=== PATIENT | female | born 1950 | race Caucasian/White ===

== ENCOUNTER 2016-11-25 10:49 | Day surgery (SDC) | payer MEDICARE ==
[2016-11-20 10:08] VITALS: BMI 22.6
[~2016-11-25 10:49] MED LIST: LACTATED RINGERS 1,000 ML IV SCH
[2016-11-25 11:35] VITALS: RESP 18; TEMP 97.6
[2016-11-25] MEDS ORDERED: LIDOCAINE 1% 20 ML VIAL (10MG/ML) FOR IV START INTRADERMA ONE (11:35)
[2016-11-25] MEDS ORDERED: PROPOFOL 10 MG/ML 20 ML VIAL IV ONE (12:46)
--- NOTE | 2016-11-25 13:02 | P.GSHP ---
History of Present Illness H&P Date: 11/25/16 Chief Complaint: Colon cancer screening Patient here today for colonoscopy. Last colonoscopy was 4 years ago. She believes she may have had a polyp at that time. Denies rectal bleeding or melena. Past Medical History Past Medical History: Cancer, CVA/TIA, Hyperlipidemia, Hypertension, Skin Disorder Additional Past Medical History / Comment(s): hx of polyps, varicose veins, psoriasis, hx uterine cancer, psoriatic arthritis History of Any Multi-Drug Resistant Organisms: None Reported Past Surgical History: Hysterectomy Additional Past Surgical History / Comment(s): hemorrhoidectomy Past Anesthesia/Blood Transfusion Reactions: No Reported Reaction Past Psychological History: No Psychological Hx Reported Smoking Status: Current every day smoker Past Alcohol Use History: Occasional Additional Past Alcohol Use History / Comment(s): states smokes 1ppd since age 19 1968 Past Drug Use History: None Reported - Past Family History Mother Family Medical History: No Reported History Medications and Allergies Home Medications Medication Instructions Recorded Confirmed Type Aspirin 81 mg PO DAILY 10/02/14 11/25/16 History Benazepril/Hydrochlorothiazide 1 tab PO QAM 10/02/14 11/25/16 History [Lotensin Hct 10-12.5 mg Tablet] Halobetafol Propronate 0.05% 1 applicate TOPICAL DAILY 10/02/14 11/25/16 History Methotrexate Sodium [Methotrexate] 10 mg PO MO 10/02/14 11/25/16 History Simvastatin [Zocor] 40 mg PO HS 10/02/14 11/25/16 History Enstilar 1 applic TOPICAL DAILY 11/20/16 11/25/16 History Allergies Allergy/AdvReac Type Severity Reaction Status Date / Time No Known Allergies Allergy Verified 11/25/16 11:26 Surgical - Exam Vital Signs Temp Pulse Resp BP Pulse Ox 97.6 F 82 18 138/76 97 11/25/16 11:33 11/25/16 11:33 11/25/16 11:33 11/25/16 11:33 11/25/16 11:33 Physical exam: General: Well-developed, well-nourished HEENT: Normocephalic, sclerae nonicteric Abdomen: Nontender, nondistended Extremities: No edema Neuro: Alert and oriented Assessment and Plan (1) Colon cancer screening Narrative/Plan: Will proceed with colonoscopy today. Risks of bleeding and perforation discussed. Status: Acute
--- NOTE | 2016-11-25 13:31 | P.PCN ---
Date of Procedure: 11/25/16 Procedure(s) Performed: PREOPERATIVE DIAGNOSIS: Screening POSTOPERATIVE DIAGNOSIS: Colon polyps, diverticulosis PROCEDURE: Colonoscopy with snare polypectomy ANESTHESIA: MAC SURGEON: Roscoe Ozuna M.D. SPECIMENS: Polyps ENDOSCOPIC PROCEDURE: The patient was placed on the endoscopy table in the left decubitus position. The Olympus colonoscope was inserted into the anus and passed under direct visualization to the base of the cecum. The appendiceal orifice was visualized. From that point the scope was slowly withdrawn inspecting all surfaces carefully. There were no neoplastic inflammatory or polypoid lesions throughout the cecum. In the mid ascending colon a small polyp was identified and removed using the snare with cautery technique. Just beyond the hepatic flexure a larger polyp was noted. This was pedunculated and measured about 1 cm in size. This was removed in a similar fashion. The remainder of the transverse, descending, sigmoid and rectum appeared normal. There was moderate diverticulosis noted in the left colon. Digital rectal examination was normal. The patient was taken to the recovery room in stable condition per anesthesia guidelines. RECOMMENDATIONS: Await biopsy results. Anticipate follow-up colonoscopy 3 years given the size of the larger polyp.
[2016-11-25 13:46] VITALS: BP 123/70; PULSE 70
== END 2016-11-25 14:10 | disposition home or self-care (01) ==
LOC: ORWHC2ENDO 10:49
PROVIDERS: ATTEND Surgery
DX: Z12.11 Encounter for screening for malignant neoplasm of colon (principal); D12.2 Benign neoplasm of ascending colon; D12.3 Benign neoplasm of transverse colon; K57.30 Diverticulosis of large intestine without perforation or abscess without bleeding; I10 Essential (primary) hypertension; E78.5 Hyperlipidemia, unspecified; L40.50 Arthropathic psoriasis, unspecified; F17.200 Nicotine dependence, unspecified, uncomplicated; Z79.82 Long term (current) use of aspirin; Z79.899 Other long term (current) drug therapy
CPT/HCPCS: 88305; 45385; J2704; 99153

== ENCOUNTER → 2016-12-08 | Outpatient (CLI) | payer MEDICARE ==
[2016-12-08 10:31] LABS: CH 32.9; CHCM 33.2; HDW 2.31; HGB 14.6 gm/dL (11.4-16.0); MCHC 34.1 g/dL (31.0-37.0); MCV 99.6 fL (80.0-100.0); Macrocytosis Slight; Mean Platelet Volume 8.4; RBC 4.31 m/uL (3.80-5.40); RDW 14.2 % (11.5-15.5)
[2016-12-08 10:55] LABS: ALT 21 U/L (9-52); AST 25 U/L (14-36)
== END ==
LOC: LABWHC1 09:58
PROVIDERS: ATTEND Dermatology Dermatopathology
DX: L40.0 Psoriasis vulgaris (principal); Z79.899 Other long term (current) drug therapy
CPT/HCPCS: 36415; 84450; 84460; 85027

== ENCOUNTER → 2017-02-10 | Outpatient (CLI) | payer MEDICARE ==
--- NOTE | 2017-02-12 13:13 | MM ---
Reason for exam: screening (asymptomatic). Last mammogram was performed 1 year and 1 month ago. History: Patient is postmenopausal and has history of endometrial cancer at age 28. Family history of breast cancer in maternal grandmother. Took estrogen for 4 years. Physical Findings: A clinical breast exam by your physician is recommended on an annual basis and results should be correlated with mammographic findings. MG 3D Screening Mammo W/Cad Bilateral CC and MLO view(s) were taken. Prior study comparison: January 03, 2016, bilateral MG 3d screening mammo w/cad. November 09, 2014, bilateral MG screening mammo w CAD. September 08, 2013, CAD bilateral diagnostic mammogram. The breast tissue is heterogeneously dense. This may lower the sensitivity of mammography. No significant changes when compared with prior studies. ASSESSMENT: Benign, BI-RAD 2 RECOMMENDATION: Routine screening mammogram of both breasts in 1 year.
== END | disposition home or self-care (01) ==
LOC: RADMAMWWP 13:14
PROVIDERS: ATTEND Family Medicine
DX: Z12.31 Encounter for screening mammogram for malignant neoplasm of breast (principal)
CPT/HCPCS: 77063; G0202

== ENCOUNTER → 2017-02-24 | Outpatient (CLI) | payer MEDICARE ==
--- NOTE | 2017-02-24 20:04 | CT ---
EXAMINATION TYPE: CT abdomen pelvis wo con DATE OF EXAM: 02/24/2017 7:34 PM COMPARISON: NONE HISTORY: Hematuria and right flank pain x years. CT DLP: 225.40 mGycm Automated exposure control for dose reduction was used. TECHNIQUE: Helical acquisition of images was performed from the lung bases through the pelvis. FINDINGS: The lung bases are clear of consolidation. There is no pleural effusion. There is a small hiatal walker ia. Liver spleen pancreas appear normal. Gallbladder is contracted. Bile ducts are not dilated. Abdominal aorta is atheromatous. There is no adrenal mass. Kidneys show no hydronephrosis. Ureters are not dilated. There are multiple foci of faint calcification in the left kidney cortex. There is no retroperitoneal adenopathy. There is no ascites. Appendix is not definitely seen. There i s no sign of appendicitis. There are multiple sigmoid diverticula. There is no sign of diverticulitis . The bladder distends smoothly. There is no sign of a pelvic mass. There is no sign of a bowel obstr uction. I see no bony destructive process.. IMPRESSION: THERE ARE CALCIFICATIONS IN THE LEFT KIDNEY CONSISTENT WITH NEPHROCALCINOSIS. NO EVIDENCE OF RENAL OB STRUCTION. ATHEROSCLEROTIC VASCULAR DISEASE. THERE IS SOME DIVERTICULOSIS WITHOUT EVIDENCE OF COLONIC DIVERTICULITIS. NO SIGN OF ACUTE ABDOMEN AND PELVIS.
== END | disposition home or self-care (01) ==
LOC: RADCTMAIN 19:13
PROVIDERS: ATTEND Family Medicine
DX: N28.89 Other specified disorders of kidney and ureter (principal); I70.90 Unspecified atherosclerosis; K57.30 Diverticulosis of large intestine without perforation or abscess without bleeding
CPT/HCPCS: 74176

== ENCOUNTER → 2017-04-22 | Outpatient (CLI) | payer MEDICARE ==
[2017-04-22 11:04] LABS: CH 33.4; CHCM 33.2; HCT 44.4 % (34.0-46.0); HDW 2.25; HGB 14.6 gm/dL (11.4-16.0); MCH 33.4 pg (25.0-35.0); MCV 101.2 fL (80.0-100.0); Macrocytosis Slight; Mean Platelet Volume 8.3; RBC 4.38 m/uL (3.80-5.40); RDW 15.5 % (11.5-15.5); WBC 6.4 k/uL (3.8-10.6)
[2017-04-22 11:09] LABS: ALT 40 U/L (9-52); AST 29 U/L (14-36)
== END | disposition home or self-care (01) ==
LOC: LABWHC1 10:21
PROVIDERS: ATTEND Dermatology Dermatopathology
DX: L40.0 Psoriasis vulgaris (principal); Z79.899 Other long term (current) drug therapy
CPT/HCPCS: 36415; 84450; 84460; 85027

== ENCOUNTER → 2017-07-26 | Outpatient (CLI) | payer MEDICARE ==
[2017-07-26 10:58] LABS: Basophils % (A) 1 %; CH 32.3; CHCM 32.5; Eosinophils # (A) 0.1 k/uL (0-0.7); Eosinophils % (A) 2 %; HCT 42.7 % (34.0-46.0); Luc % (Auto) 1; Lymphocytes # (A) 1.3 k/uL (1.0-4.8); Lymphocytes % (A) 18 %; MCH 32.7 pg (25.0-35.0); MCHC 32.7 g/dL (31.0-37.0); Macrocytosis Slight; Mean Platelet Volume 7.7; Monocytes # (A) 0.4 k/uL (0-1.0); Monocytes % (A) 6 %; Neutrophils # (A) 5.5 k/uL (1.3-7.7); Neutrophils % (A) 73 %; RBC 4.27 m/uL (3.80-5.40); RDW 14.5 % (11.5-15.5); WBC 7.6 k/uL (3.8-10.6); WBC (Perox) 7.46
[2017-07-26 11:20] LABS: ALT 27 U/L (9-52); AST 23 U/L (14-36); Alkaline Phosphatase 54 U/L (38-126); Anion Gap 7 mmol/L; Blood Urea Nitrogen 24 mg/dL (7-17); Calcium 9.3 mg/dL (8.4-10.2); Carbon Dioxide 28 mmol/L (22-30); Chloride 106 mmol/L (98-107); Cholesterol 175 mg/dL (<200); Glucose 99 mg/dL (74-99); HDL Cholesterol 84 mg/dL (40-60); Non-African American GFR(MDRD) >60 (>60 ml/min/1.73 sqM); Potassium 4.5 mmol/L (3.5-5.1); Sodium 141 mmol/L (137-145); Total Bilirubin 0.5 mg/dL (0.2-1.3); Total Protein 6.6 g/dL (6.3-8.2)
== END | disposition home or self-care (01) ==
LOC: LABWHC1 10:21
PROVIDERS: ATTEND Dermatology Dermatopathology
DX: Z00.00 Encounter for general adult medical examination without abnormal findings (principal); L40.0 Psoriasis vulgaris; E78.5 Hyperlipidemia, unspecified; I10 Essential (primary) hypertension; Z79.899 Other long term (current) drug therapy
CPT/HCPCS: 36415; 80053; 80061; 84443; 85025

== ENCOUNTER → 2017-11-22 | Outpatient (CLI) | payer MEDICARE ==
[2017-11-22 11:35] LABS: HCT 45.2 % (34.0-46.0); MCH 31.4 pg (25.0-35.0); MCHC 30.8 g/dL (31.0-37.0); MCV 101.9 fL (80.0-100.0); Macrocytosis Slight; Mean Platelet Volume 7.3; Platelet Count 292 k/uL (150-450); RBC 4.44 m/uL (3.80-5.40); RDW 13.8 % (11.5-15.5); WBC 6.7 k/uL (3.8-10.6)
[2017-11-22 11:58] LABS: ALT 24 U/L (9-52); AST 25 U/L (14-36)
== END | disposition home or self-care (01) ==
LOC: LABWHC1 10:45
PROVIDERS: ATTEND Dermatology Dermatopathology
DX: L40.0 Psoriasis vulgaris (principal); Z79.899 Other long term (current) drug therapy
CPT/HCPCS: 36415; 84450; 84460; 85027

== ENCOUNTER → 2018-03-01 | Outpatient (CLI) | payer MEDICARE ==
[2018-03-01 11:24] LABS: HCT 43.4 % (34.0-46.0); HGB 14.6 gm/dL (11.4-16.0); MCH 33.1 pg (25.0-35.0); MCHC 33.8 g/dL (31.0-37.0); MCV 97.9 fL (80.0-100.0); Mean Platelet Volume 8.1; Platelet Count 220 k/uL (150-450); RBC 4.43 m/uL (3.80-5.40); RDW 14.3 % (11.5-15.5); WBC 6.9 k/uL (3.8-10.6)
[2018-03-01 11:53] LABS: ALT 28 U/L (9-52); AST 26 U/L (14-36)
== END | disposition home or self-care (01) ==
LOC: LABWHC1 10:29
PROVIDERS: ATTEND Dermatology Dermatopathology
DX: L40.0 Psoriasis vulgaris (principal); Z79.899 Other long term (current) drug therapy
CPT/HCPCS: 36415; 84450; 84460; 85027

== ENCOUNTER → 2018-03-25 | Outpatient (CLI) | payer MEDICARE ==
--- NOTE | 2018-03-29 07:29 | MM ---
Reason for exam: screening (asymptomatic). Last mammogram was performed 1 year and 1 month ago. History: Patient is postmenopausal and has history of endometrial cancer at age 28. Family history of breast cancer in maternal grandmother. Took estrogen for 4 years. Physical Findings: A clinical breast exam by your physician is recommended on an annual basis and results should be correlated with mammographic findings. MG 3D Screening Mammo W/Cad Bilateral CC and MLO view(s) were taken. Prior study comparison: February 10, 2017, bilateral MG 3d screening mammo w/cad. January 03, 2016, bilateral MG 3d screening mammo w/cad. The breast tissue is heterogeneously dense. This may lower the sensitivity of mammography. No significant changes when compared with prior studies. ASSESSMENT: Negative, BI-RAD 1 RECOMMENDATION: Routine screening mammogram of both breasts in 1 year.
== END | disposition home or self-care (01) ==
LOC: RADMAMWWP 10:09
PROVIDERS: ATTEND Family Medicine
DX: Z12.31 Encounter for screening mammogram for malignant neoplasm of breast (principal)
CPT/HCPCS: 77063; 77067

== ENCOUNTER → 2018-08-01 | Outpatient (CLI) | payer MEDICARE ==
[2018-08-01 11:01] LABS: Basophils # (A) 0.1 k/uL (0-0.2); Basophils % (A) 1 %; Eosinophils # (A) 0.3 k/uL (0-0.7); Eosinophils % (A) 4 %; HCT 43.2 % (34.0-46.0); HGB 14.2 gm/dL (11.4-16.0); Lymphocytes # (A) 1.8 k/uL (1.0-4.8); Lymphocytes % (A) 21 %; MCH 32.5 pg (25.0-35.0); MCHC 32.9 g/dL (31.0-37.0); MCV 98.8 fL (80.0-100.0); Macrocytosis Slight; Mean Platelet Volume 7.8; Monocytes # (A) 0.5 k/uL (0-1.0); Monocytes % (A) 7 %; Neutrophils # (A) 5.5 k/uL (1.3-7.7); Neutrophils % (A) 66 %; Platelet Count 297 k/uL (150-450); RBC 4.38 m/uL (3.80-5.40); RDW 14.4 % (11.5-15.5); WBC 8.3 k/uL (3.8-10.6)
[2018-08-01 17:31] LABS: Albumin/Globulin Ratio 2.35 (1.20-2.10); Anion Gap 4.2 mmol/L (4.00-12.00); Calcium 9.4 mg/dL (8.7-10.3); Carbon Dioxide 30.8 mmol/L (21.6-31.8); Globulin 1.7 g/dL (2.1-3.7); Potassium 4.4 mmol/L (3.5-5.5); Total Bilirubin 0.5 mg/dL (0.2-1.2); Total Protein 5.7 g/dL (6.2-8.2)
[2018-08-01 17:38] LABS: T4, Free (Free Thyroxine) 1.3 ng/dL (0.80-1.80)
== END | disposition home or self-care (01) ==
LOC: LABWHC1 09:43
PROVIDERS: ATTEND Family Medicine
DX: Z00.00 Encounter for general adult medical examination without abnormal findings (principal); E78.5 Hyperlipidemia, unspecified; I10 Essential (primary) hypertension
CPT/HCPCS: 36415; 80053; 80061; 84439; 84443; 85025

== ENCOUNTER → 2018-09-16 | Outpatient (CLI) | payer MEDICARE ==
[2018-09-16 12:08] LABS: Basophils % (A) 1 %; Eosinophils # (A) 0.2 k/uL (0-0.7); Eosinophils % (A) 4 %; HCT 42.2 % (34.0-46.0); HGB 13.6 gm/dL (11.4-16.0); Lymphocytes # (A) 1.5 k/uL (1.0-4.8); Lymphocytes % (A) 25 %; MCH 31.9 pg (25.0-35.0); MCHC 32.2 g/dL (31.0-37.0); Mean Platelet Volume 8.1; Monocytes # (A) 0.3 k/uL (0-1.0); Monocytes % (A) 5 %; Neutrophils # (A) 3.9 k/uL (1.3-7.7); Neutrophils % (A) 64 %; Platelet Count 228 k/uL (150-450); RBC 4.27 m/uL (3.80-5.40); WBC 6.2 k/uL (3.8-10.6)
[2018-09-16 18:47] LABS: ALT 13 U/L (8-44); AST 22 U/L (13-35); Albumin/Globulin Ratio 2.35 (1.20-2.10); Alkaline Phosphatase 53 U/L (41-126); Bilirubin, Conjugated <0.20 mg/dL (0.20-0.40); Globulin 1.7 g/dL (2.1-3.7); Total Bilirubin 0.5 mg/dL (0.3-1.2); Total Protein 5.7 g/dL (6.2-8.2)
== END ==
LOC: LABWHC1 10:36
PROVIDERS: ATTEND Dermatology Dermatopathology
DX: L40.0 Psoriasis vulgaris (principal); Z79.899 Other long term (current) drug therapy
CPT/HCPCS: 36415; 80076; 85025

== ENCOUNTER 2018-11-14 11:22 | Emergency (ER) | payer MEDICARE ==
[2018-11-14 11:41] VITALS: RESP 18
[2018-11-14 12:26] LABS: Basophils % (A) 0 %; Eosinophils # (A) 0.1 k/uL (0-0.7); Eosinophils % (A) 1 %; HGB 14.2 gm/dL (11.4-16.0); Lymphocytes # (A) 0.9 k/uL (1.0-4.8); Lymphocytes % (A) 10 %; MCH 32.3 pg (25.0-35.0); MCHC 32.9 g/dL (31.0-37.0); MCV 98.2 fL (80.0-100.0); Mean Platelet Volume 7.6; Monocytes # (A) 0.3 k/uL (0-1.0); Monocytes % (A) 4 %; Neutrophils # (A) 7.9 k/uL (1.3-7.7); Neutrophils % (A) 84 %; Platelet Count 214 k/uL (150-450); RBC 4.38 m/uL (3.80-5.40); RDW 14.7 % (11.5-15.5); WBC 9.4 k/uL (3.8-10.6)
[2018-11-14 12:37] LABS: ALT 33 U/L (9-52); AST 30 U/L (14-36); Albumin 4.1 g/dL (3.5-5.0); Alkaline Phosphatase 51 U/L (38-126); Amylase 67 U/L (30-110); Anion Gap 6 mmol/L; Appearance,Urine Cloudy (Clear); Bacteria,Urine Rare /hpf; Bilirubin,Urine Negative (Negative); Blood Urea Nitrogen 20 mg/dL (7-17); Blood,Urine Moderate (Negative); Calcium 9.7 mg/dL (8.4-10.2); Carbon Dioxide 28 mmol/L (22-30); Chloride 106 mmol/L (98-107); Color,Urine Yellow; Glucose 99 mg/dL (74-99); Glucose,Urine (UA) Negative (Negative); Ketones,Urine Negative (Negative); Leukocyte Esterase,Urine Negative (Negative); Lipase 87 U/L (23-300); Mucus,Urine Moderate /hpf; Nitrite,Urine Negative (Negative); Potassium 3.8 mmol/L (3.5-5.1); Protein,Urine 1+ (Negative); RBC,Urine 4 /hpf (0-5); Sodium 140 mmol/L (137-145); Specific Gravity,Urine 1.022 (1.001-1.035); Squamous Epithelial Cell,Urine <1 /hpf (0-4); Total Bilirubin 0.6 mg/dL (0.2-1.3); Total Protein 6.9 g/dL (6.3-8.2); Urobilinogen,Urine <2.0 mg/dL (<2.0); WBC,Urine 3 /hpf (0-5)
[2018-11-14] MEDS ORDERED: MORPHINE SULFATE 4 MG/ML SYRINGE IVP STA (12:47)
[2018-11-14] MEDS ORDERED: KETOROLAC 30 MG/ML 1 ML VIAL IVP STA (12:47)
[2018-11-14] MEDS ORDERED: ONDANSETRON 4 MG/2 ML VIAL IVP STA (12:47)
[2018-11-14] MEDS ORDERED: SODIUM CHLORIDE 0.9% 1,000 ML IV ONE (12:48)
[2018-11-14] MEDS ORDERED: LORazepam 2 MG/ML INJ IV STA (13:37)
--- NOTE | 2018-11-14 13:58 | CT ---
EXAMINATION TYPE: CT abdomen pelvis wo con DATE OF EXAM: 11/14/2018 COMPARISON: 02/24/2017 HISTORY: Rt flank pain CT DLP: 322 mGycm Examination of the solid and hollow viscera is limited given the lack of contrast. FINDINGS: LUNG BASES: No evidence for nodule. No evidence for infiltrate. Right basilar atelectasis or parenchy mal scarring. LIVER/GB: The gallbladder is unremarkable. No space-occupying hepatic lesion. PANCREAS: No pancreatic mass identified. No inflammatory process seen. SPLEEN: No evidence for splenomegaly. No intrasplenic lesions seen. ADRENALS: No adrenal nodules identified. No evidence for thickening. KIDNEYS: Subcentimeter hyperdense renal lesions may reflect hemorrhagic cysts or mucous containing cy sts. No nephrolithiasis. No hydronephrosis. BOWEL: The appendix is not clearly visualized at this time. No evidence of bowel obstruction. Mild sm all bowel wall thickening may reflect enteritis nonspecific type. Correlate clinically. Lymph nodes: No evidence for adenopathy greater than 1 cm. Abdominal aorta: Atheromatous changes seen. No evidence for aneurysm. Genital organs: No significant abnormality. Other: No significant abnormality. IMPRESSION: 1. Mild small bowel wall thickening may reflect enteritis nonspecific type. Correlate clinically.
--- NOTE | 2018-11-14 14:00 | ED ---
Abdominal Pain HPI - General Chief Complaint: Abdominal Pain Stated Complaint: Abd Pain, Lower Back Pain Time Seen by Provider: 11/14/18 12:15 Source: patient, family, RN notes reviewed, old records reviewed Mode of arrival: wheelchair Limitations: no limitations - History of Present Illness Initial Comments: 68-year-old female presents to return today with onset of abdominal pain. This started on the right flank breathing down towards her abdomen. She reports a few episodes of vomiting due to the pain. She reports that the pain comes and goes. She reports that she has no changes in bowel habits. - Related Data Home Medications Medication Instructions Recorded Confirmed Aspirin 81 mg PO DAILY 10/02/14 11/14/18 Benazepril/Hydrochlorothiazide 1 tab PO QAM 10/02/14 11/14/18 [Lotensin Hct 10-12.5 mg Tablet] Methotrexate Sodium [Methotrexate] 15 mg PO MO 10/02/14 11/14/18 Simvastatin [Zocor] 40 mg PO HS 10/02/14 11/14/18 Previous Rx's Medication Instructions Recorded Ibuprofen [Motrin] 600 mg PO Q6HR PRN #20 tab 11/14/18 Ondansetron Odt [Zofran Odt] 4 mg PO Q8HR PRN #12 tab 11/14/18 Allergies Allergy/AdvReac Type Severity Reaction Status Date / Time No Known Allergies Allergy Verified 11/14/18 12:35 Review of Systems ROS Statement: Those systems with pertinent positive or pertinent negative responses have been documented in the HPI. ROS Other: All systems not noted in ROS Statement are negative. Past Medical History Past Medical History: Hyperlipidemia, Hypertension Additional Past Medical History / Comment(s): varicose veins, psoriasis, hx uterine cancer History of Any Multi-Drug Resistant Organisms: None Reported Past Surgical History: Hysterectomy Additional Past Surgical History / Comment(s): hemorrhoidectomy Past Anesthesia/Blood Transfusion Reactions: No Reported Reaction Past Psychological History: No Psychological Hx Reported Smoking Status: Current every day smoker Past Alcohol Use History: Occasional Past Drug Use History: None Reported - Past Family History Mother Family Medical History: No Reported History General Exam - General Exam Comments Initial Comments: 68-year-old female. Limitations: no limitations General appearance: alert, in no apparent distress Head exam: Present: atraumatic, normocephalic, normal inspection Eye exam: Present: normal appearance, PERRL, EOMI. Absent: scleral icterus, conjunctival injection, periorbital swelling ENT exam: Present: normal exam, mucous membranes moist Neck exam: Present: normal inspection. Absent: tenderness, meningismus, lymphadenopathy Respiratory exam: Present: normal lung sounds bilaterally. Absent: respiratory distress, wheezes, rales, rhonchi, stridor Cardiovascular Exam: Present: regular rate, normal rhythm, normal heart sounds. Absent: systolic murmur, diastolic murmur, rubs, gallop, clicks GI/Abdominal exam: Present: soft, tenderness (RLQ ), normal bowel sounds. Absent: distended, guarding, rebound, rigid Extremities exam: Present: normal inspection, full ROM, normal capillary refill. Absent: tenderness, pedal edema, joint swelling, calf tenderness Back exam: Present: normal inspection Course Vital Signs 11/14/18 11/14/18 11/14/18 11:39 13:18 14:40 Temperature 98.4 F Pulse Rate 70 67 73 Respiratory 18 18 18 Rate Blood Pressure 114/74 115/59 116/60 O2 Sat by Pulse 96 95 96 Oximetry 11/14/18 15:45 Temperature 98.2 F Pulse Rate 70 Respiratory 18 Rate Blood Pressure 122/74 O2 Sat by Pulse 97 Oximetry Medical Decision Making - Medical Decision Making Patient is a 68 year old female with CC of R flank pain and nausea and vomting. Patient has normal lab work. UA shows RBC. Likely passing ureteral stone, she was given IV fluids and pain medications. Patient CT scan shows no evidence of retained stone. Discussed she may have passed the stone already. Discussed that she should have close follow up with PCP . Will DC with short course of pain medications and close follow up oand resturn parameters. - Lab Data Result diagrams: 11/14/18 12:00 11/14/18 12:00 Lab Results 11/14/18 11/14/18 11/14/18 Range/Units 12:00 12:00 12:00 WBC 9.4 (3.8-10.6) k/uL RBC 4.38 (3.80-5.40) m/uL Hgb 14.2 (11.4-16.0) gm/dL Hct 43.0 (34.0-46.0) % MCV 98.2 (80.0-100.0) fL MCH 32.3 (25.0-35.0) pg MCHC 32.9 (31.0-37.0) g/dL RDW 14.7 (11.5-15.5) % Plt Count 214 (150-450) k/uL Neutrophils % 84 % Lymphocytes % 10 % Monocytes % 4 % Eosinophils % 1 % Basophils % 0 % Neutrophils # 7.9 H (1.3-7.7) k/uL Lymphocytes # 0.9 L (1.0-4.8) k/uL Monocytes # 0.3 (0-1.0) k/uL Eosinophils # 0.1 (0-0.7) k/uL Basophils # 0.0 (0-0.2) k/uL Sodium 140 (137-145) mmol/L Potassium 3.8 (3.5-5.1) mmol/L Chloride 106 (98-107) mmol/L Carbon Dioxide 28 (22-30) mmol/L Anion Gap 6 mmol/L BUN 20 H (7-17) mg/dL Creatinine 0.71 (0.52-1.04) mg/dL Est GFR (CKD-EPI)AfAm >90 (>60 ml/min/1.73 sqM) Est GFR (CKD-EPI)NonAf 88 (>60 ml/min/1.73 sqM) Glucose 99 (74-99) mg/dL Calcium 9.7 (8.4-10.2) mg/dL Total Bilirubin 0.6 (0.2-1.3) mg/dL AST 30 (14-36) U/L ALT 33 (9-52) U/L Alkaline Phosphatase 51 (38-126) U/L Total Protein 6.9 (6.3-8.2) g/dL Albumin 4.1 (3.5-5.0) g/dL Amylase 67 (30-110) U/L Lipase 87 (23-300) U/L Urine Color Yellow Urine Appearance Cloudy H (Clear) Urine pH 5.0 (5.0-8.0) Ur Specific Adams 1.022 (1.001-1.035) Urine Protein 1+ H (Negative) Urine Glucose (UA) Negative (Negative) Urine Ketones Negative (Negative) Urine Blood Moderate H (Negative) Urine Nitrite Negative (Negative) Urine Bilirubin Negative (Negative) Urine Urobilinogen <2.0 (<2.0) mg/dL Ur Leukocyte Esterase Negative (Negative) Urine RBC 4 (0-5) /hpf Urine WBC 3 (0-5) /hpf Ur Squamous Epith Cells <1 (0-4) /hpf Urine Bacteria Rare H (None) /hpf Urine Mucus Moderate H (None) /hpf - Radiology Data Radiology results: report reviewed Mild small bowel wall thickening may return present enteritis. Disposition Clinical Impression: Hematuria, Flank pain Disposition: HOME SELF-CARE Condition: Good Instructions (If sedation given, give patient instructions): Abdominal Pain (ED ) Additional Instructions: She is advised to follow-up with primary care provider. Return to emergency department if any alarming signs or symptoms occur. Prescriptions: Ibuprofen [Motrin] 600 mg PO Q6HR PRN #20 tab PRN Reason: Pain Ondansetron Odt [Zofran Odt] 4 mg PO Q8HR PRN #12 tab PRN Reason: Nausea Is patient prescribed a controlled substance at d/c from ED?: No Referrals: Noam Gusman MD [Primary Care Provider] - 1-2 days Time of Disposition: 15:32
[2018-11-14] MEDS ORDERED: ACET/COD 300 MG/30 MG STARTER PACK 6 TAB BTL PO STA (15:32)
[2018-11-14 15:48] VITALS: BP 122/74; PULSE 70; TEMP 98.2
== END 2018-11-14 15:45 | disposition home or self-care (01) ==
LOC: EC 11:22
DX: R10.9 Unspecified abdominal pain (principal); R31.9 Hematuria, unspecified; M54.5 Low back pain; E78.5 Hyperlipidemia, unspecified; I10 Essential (primary) hypertension; F17.200 Nicotine dependence, unspecified, uncomplicated; Z85.42 Personal history of malignant neoplasm of other parts of uterus; Z90.710 Acquired absence of both cervix and uterus; Z79.82 Long term (current) use of aspirin; Z79.899 Other long term (current) drug therapy; Z53.8 Procedure and treatment not carried out for other reasons
CPT/HCPCS: 36415; 80053; 82150; 83690; 85025; 81001; 74176; 99285; 96374; 96375 ×2; 96361 ×2; J2270; J2405; J1885

== ENCOUNTER → 2019-01-04 | Outpatient (CLI) | payer MEDICARE ==
[2019-01-04 11:41] LABS: HCT 42.1 % (34.0-46.0); HGB 13.6 gm/dL (11.4-16.0); MCH 31.8 pg (25.0-35.0); MCHC 32.4 g/dL (31.0-37.0); Mean Platelet Volume 7.5; Platelet Count 260 k/uL (150-450); RDW 14.3 % (11.5-15.5); WBC 4.7 k/uL (3.8-10.6)
[2019-01-04 18:42] LABS: ALT 21 U/L (8-44); AST 29 U/L (13-35)
== END | disposition home or self-care (01) ==
LOC: LABWHC1 10:20
PROVIDERS: ATTEND Dermatology Dermatopathology
DX: L40.0 Psoriasis vulgaris (principal); Z79.899 Other long term (current) drug therapy
CPT/HCPCS: 36415; 84450; 84460; 85027

== ENCOUNTER → 2019-04-20 | Outpatient (CLI) | payer MEDICARE ==
--- NOTE | 2019-04-21 10:51 | MM ---
Reason for exam: screening (asymptomatic). Last mammogram was performed 1 year and 1 month ago. History: Patient is postmenopausal and has history of endometrial cancer at age 28. Family history of breast cancer in maternal grandmother. Took estrogen for 4 years. Physical Findings: A clinical breast exam by your physician is recommended on an annual basis and results should be correlated with mammographic findings. MG 3D Screening Mammo W/Cad Bilateral CC and MLO view(s) were taken. Prior study comparison: March 25, 2018, bilateral MG 3d screening mammo w/cad. February 10, 2017, bilateral MG 3d screening mammo w/cad. The breast tissue is heterogeneously dense. This may lower the sensitivity of mammography. No significant changes when compared with prior studies. ASSESSMENT: Benign, BI-RAD 2 RECOMMENDATION: Routine screening mammogram of both breasts in 1 year.
== END | disposition home or self-care (01) ==
LOC: RADMAMWWP 16:10
PROVIDERS: ATTEND Family Medicine
DX: Z12.31 Encounter for screening mammogram for malignant neoplasm of breast (principal)
CPT/HCPCS: 77063; 77067

== ENCOUNTER → 2019-05-02 | Outpatient (CLI) | payer MEDICARE ==
[2019-05-02 10:17] LABS: HCT 43.3 % (34.0-46.0); MCHC 32.3 g/dL (31.0-37.0); MCV 99.3 fL (80.0-100.0); Mean Platelet Volume 7.2; Platelet Count 269 k/uL (150-450); RBC 4.36 m/uL (3.80-5.40); RDW 14.1 % (11.5-15.5); WBC 7.3 k/uL (3.8-10.6)
[2019-05-02 21:15] LABS: ALT 15 U/L (8-44); AST 25 U/L (13-35)
== END | disposition home or self-care (01) ==
LOC: LABWHC1 09:53
PROVIDERS: ATTEND Dermatology Dermatopathology
DX: L40.0 Psoriasis vulgaris (principal); Z79.899 Other long term (current) drug therapy
CPT/HCPCS: 36415; 84450; 84460; 85027

== ENCOUNTER → 2019-07-07 | Outpatient (CLI) | payer MEDICARE ==
--- NOTE | 2019-07-07 12:40 | US ---
EXAMINATION TYPE: US venous doppler duplex LE LT DATE OF EXAM: 07/07/2019 12:27 PM COMPARISON: NONE CLINICAL HISTORY: M79.662 Pain lower limb,R22.42 Swelling LLL. Left leg swelling SIDE PERFORMED: Left TECHNIQUE: The lower extremity deep venous system is examined utilizing real time linear array sonog laila with graded compression, doppler sonography and color-flow sonography. VESSELS IMAGED: External Iliac Vein (EIV) Common Femoral Vein Deep Femoral Vein Greater Saphenous Vein * Femoral Vein Popliteal Vein Small Saphenous Vein * Proximal Calf Veins (* superficial vessels) Grayscale, color doppler, spectral doppler imaging performed of the deep veins of the left lower extr emity. There is normal flow, compressibility, vascular waveforms. Left Leg: Appears negative for DVT IMPRESSION: No sonographic evidence of deep venous thrombosis within the left lower extremity.
== END | disposition home or self-care (01) ==
LOC: RADUSWWP 12:01
PROVIDERS: ATTEND Family Medicine
DX: M79.662 Pain in left lower leg (principal); R22.42 Localized swelling, mass and lump, left lower limb

== ENCOUNTER → 2019-07-10 | Outpatient (CLI) | payer MEDICARE ==
--- NOTE | 2019-07-10 14:23 | XR ---
EXAMINATION TYPE: XR hand complete LT, XR wrist complete LT DATE OF EXAM: 07/10/2019 CLINICAL HISTORY: Left lateral posterior hand pain and swelling for one week with no known injury TECHNIQUE: Frontal, lateral and oblique images of the left wrist and hand are obtained. Scaphoid vie w was also obtained. COMPARISON: None FINDINGS: There is no acute fracture/dislocation evident in the left hand. The joint spaces in the l eft hand appear aligned. There is moderate degenerative change of the first carpometacarpal joint wit h subcortical cyst formation, opposing surface sclerosis and bony proliferative change as well as leah nt space narrowing. Small degenerative cysts are also seen within other carpal bones such as the elo te. Minimal degenerative changes of the distal interphalangeal joints are seen as bony proliferative change. Carpal carpal interspaces are maintained. The overlying soft tissue appears unremarkable. IMPRESSION: 1. No acute fracture or dislocation in the left hand nor left wrist. 2. Moderate degenerative changes at the first carpometacarpal joint and mild within the distal interp halangeal joints. Distribution favors osteoarthritis.
== END | disposition home or self-care (01) ==
LOC: RADXRMAIN 13:41
PROVIDERS: ATTEND Nurse Practitioner Family
DX: M19.042 Primary osteoarthritis, left hand (principal)

== ENCOUNTER → 2019-07-13 | Outpatient (CLI) | payer MEDICARE ==
--- NOTE | 2019-07-13 10:56 | CT ---
EXAMINATION TYPE: CT abdomen pelvis wo con DATE OF EXAM: 07/13/2019 HISTORY: Right flank pain, gross hematuria, history of prior stones. CT DLP: 197.9 mGycm. Automated Exposure Control for Dose Reduction was Utilized. TECHNIQUE: CT scan of the abdomen and pelvis is performed without oral or IV contrast. COMPARISON: CT abdomen and pelvis November 14, 2018 FINDINGS: Within the limitations of a non-contrast study, the following observations are made. LUNG BASES: Suspect small right-sided diaphragmatic hernia on axial image 17 unchanged from prior. LIVER/GB: No significant abnormality is appreciated. PANCREAS: No significant abnormality is seen. SPLEEN: No significant abnormality is seen. ADRENALS: No significant abnormality is seen. KIDNEYS: Scattered subcentimeter hyperdense round areas throughout left kidney likely reflect protein aceous or hemorrhagic cysts for reference posterior axial image 40 made to lower pole level unchanged from prior. No definitive renal calculi bilaterally. No hydronephrosis or obstructing ureteral calcu li. No intraluminal calculi and bladder. BOWEL: Stable small hiatal hernia. Diverticulosis of the sigmoid colon. No suspicious small or large bowel dilatation. GENITAL ORGANS: No gross abnormality seen. LYMPH NODES: No greater than 1cm abdominal or pelvic lymph nodes are appreciated. OSSEOUS STRUCTURES: Slight underlying scoliotic curvature. Moderate disc space narrowing and anterior spurring L2-L3 level. OTHER: No significant additional abnormality is seen. IMPRESSION: No renal stones or hydronephrosis is seen bilaterally. No significant findings seen to ac count for patient's symptoms of right flank pain and hematuria. Advise nonemergent multiphase contras t-enhanced CT follow-up if symptoms of hematuria persist
== END | disposition home or self-care (01) ==
LOC: RADCTMAIN 10:28
PROVIDERS: ATTEND Nurse Practitioner Family
DX: N30.91 Cystitis, unspecified with hematuria (principal); Z87.442 Personal history of urinary calculi
CPT/HCPCS: 74176

== ENCOUNTER 2019-07-21 12:28 | Inpatient (IN) | payer MEDICARE ==
[2019-07-21] MEDS ORDERED: SODIUM CHLORIDE 0.9% 500 ML 500 ML IV STA (12:46)
[2019-07-21] MEDS ORDERED: DIPHENOX-ATROP 2.5-0.025 MG 1 EACH TAB PO STA (12:46)
[2019-07-21] MEDS ORDERED: SODIUM CHLORIDE 0.9% 1,000 ML IV STA (12:46)
--- NOTE | 2019-07-21 12:53 | ED ---
General Adult HPI - General Chief complaint: Abdominal Pain Stated complaint: Diarrhea/Sent ME Time Seen by Provider: 07/21/19 12:30 Source: patient, RN notes reviewed Mode of arrival: ambulatory Limitations: no limitations - History of Present Illness Initial comments: This is a 69-year-old female presents emergency Department complaining of abdominal pain since Wednesday as well as diarrhea since Wednesday. Patient states she has been on an antibiotic for about 6 weeks for her chronic urinary tract infection. Patient states she stopped the antibiotics a few days ago. Patient denies any fever but does complain of chills. Patient denies any chest pain difficulty breathing shortness of breath. Patient states her abdominal pain is diffuse and there is no one area of it's more tender than another. Patient denies any dysuria hematuria urinary frequency. Patient denies any back pain. Patient denies any recent injury or trauma. Patient denies any vomiting. - Related Data Home Medications Medication Instructions Recorded Confirmed Aspirin 81 mg PO DAILY 10/02/14 07/21/19 Benazepril/Hydrochlorothiazide 1 tab PO QAM 10/02/14 07/21/19 [Lotensin Hct 10-12.5 mg Tablet] Methotrexate Sodium [Methotrexate] 15 mg PO MO 10/02/14 07/21/19 Simvastatin [Zocor] 40 mg PO HS 10/02/14 07/21/19 Allergies Allergy/AdvReac Type Severity Reaction Status Date / Time No Known Allergies Allergy Verified 07/21/19 12:59 Review of Systems ROS Statement: Those systems with pertinent positive or pertinent negative responses have been documented in the HPI. ROS Other: All systems not noted in ROS Statement are negative. Past Medical History Past Medical History: Hyperlipidemia, Hypertension Additional Past Medical History / Comment(s): varicose veins, psoriasis, hx uterine cancer in remission History of Any Multi-Drug Resistant Organisms: None Reported Past Surgical History: Hysterectomy Additional Past Surgical History / Comment(s): hemorrhoidectomy Past Anesthesia/Blood Transfusion Reactions: No Reported Reaction Past Psychological History: No Psychological Hx Reported Smoking Status: Current every day smoker Past Alcohol Use History: Occasional Past Drug Use History: None Reported - Past Family History Mother Family Medical History: No Reported History General Exam - General Exam Comments Initial Comments: GENERAL: Patient is well-developed and well-nourished. Patient is nontoxic and well- hydrated and is in mild distress. ENT: Neck is soft and supple. No significant lymphadenopathy is noted. Oropharynx is clear. Moist mucous membranes. Neck has full range of motion without eliciting any pain. EYES: The sclera were anicteric and conjunctiva were pink and moist. Extraocular movements were intact and pupils were equal round and reactive to light. Eyelids were unremarkable. PULMONARY: Unlabored respirations. Good breath sounds bilaterally. No audible rales rhonchi or wheezing was noted. CARDIOVASCULAR: There is a regular rate and rhythm without any murmurs gallops or rubs. ABDOMEN: Patient is diffusely tender no rebound or guarding SKIN: Skin is clear with no lesions or rashes and otherwise unremarkable. NEUROLOGIC: Patient is alert and oriented x3. Cranial nerves II through XII are grossly intact. Motor and sensory are also intact. Normal speech, volume and content. Symmetrical smile. MUSCULOSKELETAL: Normal extremities with adequate strength and full range of motion. LYMPHATICS: No significant lymphadenopathy is noted PSYCHIATRIC: Normal psychiatric evaluation. Limitations: no limitations Course Vital Signs 07/21/19 07/21/19 07/21/19 12:31 13:00 14:22 Temperature 98.4 F Pulse Rate 85 82 88 Respiratory 18 16 18 Rate Blood Pressure 85/51 106/58 110/49 O2 Sat by Pulse 96 95 96 Oximetry 07/21/19 07/21/19 15:49 16:20 Temperature 100.7 F H Pulse Rate Respiratory 16 Rate Blood Pressure 97/70 O2 Sat by Pulse 95 Oximetry Medical Decision Making - Medical Decision Making I will back into see the patient she had a fever 100.7 and gave her Tylenol or Motrin. I reevaluated the patient she stated she still was not feeling very good. I spoke with Dr. Gusman he agreed to admit the patient admitted the patient started the patient on oral Vanco. - Lab Data Result diagrams: 07/21/19 13:05 07/21/19 13:05 Lab Results 07/21/19 07/21/19 07/21/19 Range/Units 13:05 13:05 15:01 WBC 15.2 H (3.8-10.6) k/uL RBC 4.51 (3.80-5.40) m/uL Hgb 14.8 (11.4-16.0) gm/dL Hct 44.2 (34.0-46.0) % MCV 98.1 (80.0-100.0) fL MCH 32.9 (25.0-35.0) pg MCHC 33.5 (31.0-37.0) g/dL RDW 14.4 (11.5-15.5) % Plt Count 242 (150-450) k/uL Neutrophils % 89 % Lymphocytes % 4 % Monocytes % 4 % Eosinophils % 1 % Basophils % 1 % Neutrophils # 13.6 H (1.3-7.7) k/uL Lymphocytes # 0.7 L (1.0-4.8) k/uL Monocytes # 0.6 (0-1.0) k/uL Eosinophils # 0.2 (0-0.7) k/uL Basophils # 0.1 (0-0.2) k/uL Sodium 138 (137-145) mmol/L Potassium 3.9 (3.5-5.1) mmol/L Chloride 103 (98-107) mmol/L Carbon Dioxide 26 (22-30) mmol/L Anion Gap 9 mmol/L BUN 13 (7-17) mg/dL Creatinine 0.84 (0.52-1.04) mg/dL Est GFR (CKD-EPI)AfAm 81 (>60 ml/min/1.73 sqM) Est GFR (CKD-EPI)NonAf 71 (>60 ml/min/1.73 sqM) Glucose 93 (74-99) mg/dL Calcium 9.1 (8.4-10.2) mg/dL Total Bilirubin 0.8 (0.2-1.3) mg/dL AST 26 (14-36) U/L ALT 15 (9-52) U/L Alkaline Phosphatase 56 (38-126) U/L Total Protein 6.6 (6.3-8.2) g/dL Albumin 3.7 (3.5-5.0) g/dL Amylase 37 (30-110) U/L Lipase 30 (23-300) U/L Urine Color Yellow Urine Appearance Clear (Clear) Urine pH 5.5 (5.0-8.0) Ur Specific [place] 1.013 (1.001-1.035) Urine Protein Trace H (Negative) Urine Glucose (UA) Negative (Negative) Urine Ketones 1+ H (Negative) Urine Blood Small H (Negative) Urine Nitrite Negative (Negative) Urine Bilirubin Negative (Negative) Urine Urobilinogen <2.0 (<2.0) mg/dL Ur Leukocyte Esterase Negative (Negative) Urine RBC 3 (0-5) /hpf Urine WBC 3 (0-5) /hpf Ur Squamous Epith Cells <1 (0-4) /hpf Urine Mucus Few H (None) /hpf Interpretation: unchanged when compared to prior tracing (date) Disposition Clinical Impression: Colitis Disposition: ADMITTED IP TO THIS HOSP Referrals: Noam Gusman MD [Primary Care Provider] - 1-2 days Time of Disposition: 17:03
[2019-07-21 13:44] LABS: Basophils # (A) 0.1 k/uL (0-0.2); Basophils % (A) 1 %; Eosinophils # (A) 0.2 k/uL (0-0.7); Eosinophils % (A) 1 %; HCT 44.2 % (34.0-46.0); HGB 14.8 gm/dL (11.4-16.0); Lymphocytes # (A) 0.7 k/uL (1.0-4.8); Lymphocytes % (A) 4 %; MCH 32.9 pg (25.0-35.0); MCHC 33.5 g/dL (31.0-37.0); MCV 98.1 fL (80.0-100.0); Mean Platelet Volume 8.1; Monocytes # (A) 0.6 k/uL (0-1.0); Monocytes % (A) 4 %; Neutrophils # (A) 13.6 k/uL (1.3-7.7); Neutrophils % (A) 89 %; Platelet Count 242 k/uL (150-450); RBC 4.51 m/uL (3.80-5.40); RDW 14.4 % (11.5-15.5); WBC 15.2 k/uL (3.8-10.6)
[2019-07-21 13:50] LABS: Albumin 3.7 g/dL (3.5-5.0); Calcium 9.1 mg/dL (8.4-10.2); Total Bilirubin 0.8 mg/dL (0.2-1.3); Total Protein 6.6 g/dL (6.3-8.2)
[2019-07-21 13:55] LABS: Potassium 3.9 mmol/L (3.5-5.1)
[2019-07-21 15:22] LABS: Appearance,Urine Clear (Clear); Bilirubin,Urine Negative (Negative); Blood,Urine Small (Negative); Color,Urine Yellow; Glucose,Urine (UA) Negative (Negative); Ketones,Urine 1+ (Negative); Leukocyte Esterase,Urine Negative (Negative); Mucus,Urine Few /hpf; Nitrite,Urine Negative (Negative); PH, Urine 5.5 (5.0-8.0); Protein,Urine Trace (Negative); RBC,Urine 3 /hpf (0-5); Specific Gravity,Urine 1.013 (1.001-1.035); Squamous Epithelial Cell,Urine <1 /hpf (0-4); Urobilinogen,Urine <2.0 mg/dL (<2.0); WBC,Urine 3 /hpf (0-5)
[2019-07-21] MEDS ORDERED: ACETAMINOPHEN TAB 500 MG TAB PO STA (15:47)
[2019-07-21] MEDS ORDERED: IBUPROFEN 600 MG TAB PO STA (15:48)
[2019-07-21] MEDS ORDERED: SODIUM CHLORIDE 0.9% 1,000 ML IV ONE (17:03)
[2019-07-21] MEDS ORDERED: ACETAMINOPHEN TAB 325 MG TAB PO PRN (20:20)
[2019-07-21] MEDS ORDERED: SODIUM CHLORIDE 0.9% 500 ML 500 ML IV ONE (20:20)
[2019-07-21] MEDS ORDERED: ZOLPIDEM 5 MG TAB PO PRN (20:20)
[2019-07-21] MEDS: CHERRY FLAVOR 60 ML BOTTLE PO SCH (21:54)
[2019-07-21] MEDS: VANCOMYCIN ORAL SOLUTION 250 MG/5 ML BOTTLE PO SCH (21:54)
[2019-07-21 23:47] VITALS: BMI 20.7
[2019-07-22] MEDS: CHERRY FLAVOR 60 ML BOTTLE PO SCH ×5 (01:15→23:15)
[2019-07-22] MEDS: VANCOMYCIN ORAL SOLUTION 250 MG/5 ML BOTTLE PO SCH ×5 (01:15→23:16)
[2019-07-22 08:01] LABS: Basophils # (A) 0.2 k/uL (0-0.2); Basophils % (A) 3 %; Eosinophils # (A) 0.2 k/uL (0-0.7); Eosinophils % (A) 3 %; HCT 33.2 % (34.0-46.0); Lymphocytes # (A) 0.7 k/uL (1.0-4.8); Lymphocytes % (A) 11 %; MCH 33.4 pg (25.0-35.0); MCHC 34.2 g/dL (31.0-37.0); MCV 97.5 fL (80.0-100.0); Mean Platelet Volume 7.7; Monocytes # (A) 0.5 k/uL (0-1.0); Monocytes % (A) 7 %; Neutrophils # (A) 4.6 k/uL (1.3-7.7); Neutrophils % (A) 73 %; Platelet Count 199 k/uL (150-450); RBC 3.41 m/uL (3.80-5.40); RDW 13.9 % (11.5-15.5); WBC 6.4 k/uL (3.8-10.6)
[2019-07-22 08:03] LABS: ALT 17 U/L (9-52); AST 15 U/L (14-36); African American GFR (CKD) >90 (>60 ml/min/1.73 sqM); Albumin 2.5 g/dL (3.5-5.0); Alkaline Phosphatase 39 U/L (38-126); Anion Gap 5 mmol/L; Blood Urea Nitrogen 8 mg/dL (7-17); Calcium 8.3 mg/dL (8.4-10.2); Carbon Dioxide 26 mmol/L (22-30); Chloride 110 mmol/L (98-107); Glucose 90 mg/dL (74-99); Potassium 3.2 mmol/L (3.5-5.1); Sodium 141 mmol/L (137-145); Total Bilirubin 0.3 mg/dL (0.2-1.3); Total Protein 4.6 g/dL (6.3-8.2)
[2019-07-22 08:25] LABS: HGB 11.4 gm/dL (11.4-16.0)
[2019-07-22] MEDS ORDERED: Potassium Replacement Protocol 1 EACH MISC MISCELLANE PRN (09:09)
[2019-07-22] MEDS: POTASSIUM CHLORIDE ER 20 MEQ TAB.ER PO SCH ×3 (09:33→13:04)
--- NOTE | 2019-07-22 10:45 | P.HPIM ---
History of Present Illness H&P Date: 07/22/19 Chief Complaint: diarrhea Chaparro is a 69 y/o white femal well knowm to me from my practice. She has been complaining of Diarrhea that started 5 days a go and has steadily worsened leading to significatn fatigue and dehydration]b.She c/o of 5+ stools per day of watery diarrhea. She has been on multiple rounds of anitibiotics over the past 6 weeks as well for Dental Carries and UTI. She denies any CP, pressure, SOB, some nausea but no voimitng. Past Medical History Past Medical History: Hyperlipidemia, Hypertension Additional Past Medical History / Comment(s): varicose veins, psoriasis, hx uterine cancer in remission History of Any Multi-Drug Resistant Organisms: None Reported Past Surgical History: Hysterectomy Additional Past Surgical History / Comment(s): hemorrhoidectomy Past Anesthesia/Blood Transfusion Reactions: No Reported Reaction Past Psychological History: No Psychological Hx Reported Smoking Status: Current every day smoker Past Alcohol Use History: Occasional Additional Past Alcohol Use History / Comment(s): states smokes 1ppd since age 19 1969 Past Drug Use History: None Reported - Past Family History Mother Family Medical History: Cancer Father Family Medical History: Cancer Medications and Allergies Home Medications Medication Instructions Recorded Confirmed Type Aspirin 81 mg PO DAILY 10/02/14 07/21/19 History Benazepril/Hydrochlorothiazide 1 tab PO QAM 10/02/14 07/21/19 History [Lotensin Hct 10-12.5 mg Tablet] Methotrexate Sodium [Methotrexate] 15 mg PO MO 10/02/14 07/21/19 History Simvastatin [Zocor] 40 mg PO HS 10/02/14 07/21/19 History Allergies Allergy/AdvReac Type Severity Reaction Status Date / Time No Known Allergies Allergy Verified 07/21/19 12:59 Physical Exam Vitals: Vital Signs Temp Pulse Pulse Resp BP BP BP 07/22/19 05:44 103/56 07/22/19 04:55 97.1 F L 70 20 94/42 07/21/19 21:20 91/54 07/21/19 19:42 98.2 F 68 18 75/41 82/45 07/21/19 19:13 100.4 F H 74 18 99/51 07/21/19 18:03 100.4 F H 74 18 99/51 07/21/19 16:20 16 97/70 07/21/19 15:49 100.7 F H 07/21/19 14:22 88 18 110/49 07/21/19 13:00 82 16 106/58 07/21/19 12:31 98.4 F 85 18 85/51 Pulse Ox 07/22/19 05:44 07/22/19 04:55 94 L 07/21/19 21:20 07/21/19 19:42 95 07/21/19 19:13 97 07/21/19 18:03 97 07/21/19 16:20 95 07/21/19 15:49 07/21/19 14:22 96 07/21/19 13:00 95 07/21/19 12:31 96 Intake and Output 07/21/19 07/22/19 07/22/19 22:59 06:59 14:59 Intake Total 2100 1500 Output Total 400 400 Balance 2100 1100 -400 Intake: Amount of Fluid Infused ( 2100 ml) Intake, IV Titration 1500 Amount Sodium Chloride 0.9% 1, 1000 000 ml @ 100 mls/hr IV . Q10H [facility] Rx#:[id number] Sodium Chloride 0.9% 500 500 ml 500 ml @ 999 mls/hr IV .Q31M [facility] Rx#:[id number] Output: Urine 400 400 Other: Voiding Method Toilet Toilet # Voids 2 2 # Bowel Movements 2 - Constitutional General appearance: average body habitus - EENT Eyes: EOMI, PERRLA ENT: normal oropharynx Ears: left: normal - Neck Neck: no lymphadenopathy, no normal ROM, no other, no rigidity, no stridor, no thyromegaly Thyroid: bilateral: normal size - Respiratory Respiratory: bilateral: CTA - Cardiovascular Rhythm: regular Heart sounds: normal: S1, S2 - Gastrointestinal General gastrointestinal: hyperactive bowel sounds, no organomegaly Localized gastrointestinal: tender: diffuse - Integumentary Integumentary: pale - Neurologic Neurologic: CNII-XII intact - Musculoskeletal Musculoskeletal: gait normal, strength equal bilaterally - Psychiatric Psychiatric: A&O x's 3 Results CBC & Chem 7: 07/22/19 06:59 07/22/19 06:59 Labs: Abnormal Lab Results - Last 24 Hours (Table) 07/21/19 07/21/19 07/22/19 Range/Units 13:05 15:01 06:59 WBC 15.2 H (3.8-10.6) k/uL RBC (3.80-5.40) m/uL Hct (34.0-46.0) % Neutrophils # 13.6 H (1.3-7.7) k/uL Lymphocytes # 0.7 L (1.0-4.8) k/uL Potassium 3.2 L (3.5-5.1) mmol/L Chloride 110 H (98-107) mmol/L Calcium 8.3 L (8.4-10.2) mg/dL Total Protein 4.6 L (6.3-8.2) g/dL Albumin 2.5 L (3.5-5.0) g/dL Urine Protein Trace H (Negative) Urine Ketones 1+ H (Negative) Urine Blood Small H (Negative) Urine Mucus Few H (None) /hpf 07/22/19 Range/Units 06:59 WBC (3.8-10.6) k/uL RBC 3.41 L (3.80-5.40) m/uL Hct 33.2 L (34.0-46.0) % Neutrophils # (1.3-7.7) k/uL Lymphocytes # 0.7 L (1.0-4.8) k/uL Potassium (3.5-5.1) mmol/L Chloride (98-107) mmol/L Calcium (8.4-10.2) mg/dL Total Protein (6.3-8.2) g/dL Albumin (3.5-5.0) g/dL Urine Protein (Negative) Urine Ketones (Negative) Urine Blood (Negative) Urine Mucus (None) /hpf Thrombosis Risk Factor Assmnt - DVT/VTE Prophylaxis DVT/VTE Prophylaxis: Low risk, early ambulation encouraged - Choose All That Apply Any of the Below Risk Factors Present?: No Other Risk Factors: Yes Each Risk Factor Represents 2 Points: Age 61-74 years Other congenital or acquired thrombophilia - If yes, enter type in comment: No Thrombosis Risk Factor Assessment Total Risk Factor Score: 2 Thrombosis Risk Factor Assessment Level: Low Risk Assessment and Plan (1) Dehydration Current Visit: Yes Status: Acute Code(s): E86.0 - DEHYDRATION SNOMED Code(s): 45156890 (2) Colitis Current Visit: Yes Status: Acute Code(s): K52.9 - NONINFECTIVE GASTROENTERITIS AND COLITIS, UNSPECIFIED SNOMED Code(s): 84262692 (3) Hypotension Current Visit: Yes Status: Acute Code(s): I95.9 - HYPOTENSION, UNSPECIFIED SNOMED Code(s): 89698299 (4) Essential (primary) hypertension Current Visit: Yes Status: Acute Code(s): I10 - ESSENTIAL (PRIMARY) HYPERTENSION SNOMED Code(s): 41712258 (5) Mixed hyperlipidemia Current Visit: Yes Status: Acute Code(s): E78.2 - MIXED HYPERLIPIDEMIA SNOMED Code(s): 202216506 Plan: preliminary diagnosis of C diff Colitis , Oral Vancomycin has been started, stool cure are pending, fluid rehydration and potassium replacemtn in progreee, repeat labs in am reevaluate in 24 hrs
[2019-07-22] MEDS: SODIUM CHLORIDE 0.9% 1,000 ML IV SCH ×2 (11:10→21:55)
[2019-07-23] MEDS: VANCOMYCIN ORAL SOLUTION 250 MG/5 ML BOTTLE PO SCH ×4 (05:36→23:48)
[2019-07-23] MEDS: CHERRY FLAVOR 60 ML BOTTLE PO SCH ×4 (05:36→23:47)
[2019-07-23] MEDS: SODIUM CHLORIDE 0.9% 1,000 ML IV SCH ×3 (07:33→23:49)
[2019-07-23 08:19] LABS: Basophils # (A) 0.1 k/uL (0-0.2); Basophils % (A) 1 %; Eosinophils # (A) 0.2 k/uL (0-0.7); Eosinophils % (A) 3 %; HCT 39.3 % (34.0-46.0); HGB 12.9 gm/dL (11.4-16.0); Lymphocytes # (A) 0.8 k/uL (1.0-4.8); Lymphocytes % (A) 11 %; MCH 32.7 pg (25.0-35.0); MCHC 32.8 g/dL (31.0-37.0); MCV 99.5 fL (80.0-100.0); Macrocytosis Slight; Mean Platelet Volume 7.1; Monocytes # (A) 0.4 k/uL (0-1.0); Monocytes % (A) 6 %; Neutrophils # (A) 5.6 k/uL (1.3-7.7); Neutrophils % (A) 77 %; Platelet Count 234 k/uL (150-450); RBC 3.95 m/uL (3.80-5.40); RDW 14.3 % (11.5-15.5); WBC 7.3 k/uL (3.8-10.6)
[2019-07-23 08:31] LABS: African American GFR (CKD) >90 (>60 ml/min/1.73 sqM); Anion Gap 7 mmol/L; Blood Urea Nitrogen 3 mg/dL (7-17); Calcium 8.6 mg/dL (8.4-10.2); Carbon Dioxide 25 mmol/L (22-30); Chloride 107 mmol/L (98-107); Glucose 115 mg/dL (74-99); Magnesium 1.6 mg/dL (1.6-2.3); Potassium 3.5 mmol/L (3.5-5.1); Sodium 139 mmol/L (137-145)
[2019-07-23] MEDS ORDERED: Potassium Replacement Protocol 1 EACH MISC MISCELLANE PRN (08:45)
[2019-07-23] MEDS: POTASSIUM CHLORIDE ER 20 MEQ TAB.ER PO SCH ×2 (09:07→10:39)
--- NOTE | 2019-07-23 12:55 | P.PN ---
Subjective This is a 69 y/o white femal well knowm to me from my practice. She has been complaining of Diarrhea that started 5 days a go and has steadily worsened leading to significatn fatigue and dehydration]b.She c/o of 5+ stools per day of watery diarrhea. She has been on multiple rounds of anitibiotics over the past 6 weeks as well for Dental Carries and UTI. She denies any CP, pressure, SOB, some nausea but no voimitng. 07/23/2019: Patient is feeling better. She remains on vancomycin 250 mg 4 times a day for C. difficile colitis. Stool sample was positive for C. difficile colitis. Stool cultures are pending. She is tolerating a clear liquid diet and denies any significant nausea or vomiting. She is requesting a full diet at this time. She reports only one to 2 stools in the past 12 hours. She denies any chest pains, pressures, shortness of breath. We discussed her methotrexate that she takes for psoriasis and arthritis. I also reviewed her med list and the significant amount of antibiotic she received regarding her root canal and my suspicion the clindamycin played a factor in this. Objective - Vital Signs Vital signs: Vital Signs Temp 98.1 F 07/23/19 11:40 Pulse 80 07/23/19 11:40 Resp 18 07/23/19 11:40 BP 139/75 07/23/19 11:40 Pulse Ox 95 07/23/19 11:40 Intake & Output 07/22/19 07/23/19 07/23/19 18:59 06:59 18:59 Intake Total 2680 2680 Output Total 1100 1100 900 Balance 1580 -1100 1780 Intake: Intake, IV Titration 1100 1100 Amount Sodium Chloride 0.9% 1, 1100 1100 000 ml @ 100 mls/hr IV . Q10H [facility] Rx#:[id number] Oral 1580 1580 Output: Urine 1100 1100 900 Other: Voiding Method Toilet Toilet Toilet # Voids 2 3 # Bowel Movements 3 3 - Exam General: The patient is awake and alert, in no distress, and does not appear acutely ill. Neck: The neck is supple, there is no thyromegaly, lymphadenopathy, tenderness or JVD. Cardiovascular: S1S2 is normal, There is a regular rate and rhythm. No murmur, rub or gallop is appreciated. Respiratory: Lungs are clear to auscultation bilaterally, respirations are non-labored, breath sounds are equal. Gastrointestinal: Soft, non-distended, non-tender abdomen without masses or organomegaly noted. There is no rebound or guarding present. Bowel sounds are u nremarkable. Musculoskeletal: Normal ROM, no tenderness, There is no pedal edema. There is no calf tenderness or swelling. No cords were appreciated. Neurological: CN II-XII intact, there are no obvious motor or sensory deficits. Coordination appears grossly intact. Speech is normal. Skin: Skin is warm and dry and no rashes or lesions are noted. - Labs CBC & Chem 7: 07/23/19 08:08 07/23/19 08:08 Labs: Abnormal Lab Results - Last 24 Hours (Table) 07/22/19 07/23/19 07/23/19 Range/Units 13:01 08:08 08:08 Lymphocytes # 0.8 L (1.0-4.8) k/uL BUN 3 L (7-17) mg/dL Glucose 115 H (74-99) mg/dL C. difficile (EIA) Intrp Positive A (Negative) Microbiology - Last 24 Hours (Table) 07/22/19 13:01 Stool Culture - Preliminary Stool Assessment and Plan (1) C. difficile colitis Current Visit: Yes Status: Acute Code(s): A04.72 - ENTEROCOLITIS D/T C LOSTRIDIUM DIFFICILE, NOT SPCF RECUR SNOMED Code(s): 926835477 (2) Dehydration Current Visit: Yes Status: Acute Code(s): E86.0 - DEHYDRATION SNOMED Code(s): 02813395 (3) Colitis Current Visit: Yes Status: Acute Code(s): K52.9 - NONINFECTIVE GASTROEN TERITIS AND COLITIS, UNSPECIFIED SNOMED Code(s): 01610336 (4) Hypotension Current Visit: Yes Status: Acute Code(s): I95.9 - HYPOTENSION, UNSPECIFIED SNOMED Code(s): 96303655 (5) Essential (primary) hypertension Current Visit: Yes Status: Acute Code(s): I10 - ESSENTIAL (PRIMARY) HYPERTENSION SNOMED Code(s): 66495572 (6) Mixed hyperlipidemia Current Visit: Yes Status: Acute Code(s): E78.2 - MIXED HYPERLIPIDEMIA SNOMED Code(s): 197380588 Plan: He'll continue on vancomycin 250 mg 4 times a day 10-14 days. We'll advance her diet as tolerated. Replace her magnesium and potassium and help control electrolyte disturbances. She can restart her simvastatin and continue to hold her Lotensin HCT based on recent blood pressure medications. We'll plan on her going home either later today or tomorrow.
[2019-07-23] MEDS ORDERED: MAGNESIUM SULFATE-D5W PMX 1 GM in DEXTROSE/WATER 1 100ML.BAG IVPB ONE (13:00)
[2019-07-23 20:38] VITALS: RESP 16
[2019-07-24 05:17] VITALS: BP 114/55; PULSE 74; TEMP 99.4
[2019-07-24] MEDS: CHERRY FLAVOR 60 ML BOTTLE PO SCH (06:08)
[2019-07-24] MEDS: VANCOMYCIN ORAL SOLUTION 250 MG/5 ML BOTTLE PO SCH (06:08)
--- NOTE | 2019-07-27 09:31 | P.DS ---
Providers Date of admission: 07/21/19 17:03 Expected date of discharge: 07/24/19 Attending physician: Noam Gusman Primary care physician: Noam Gusman [facility] Course: Final Diagnoses: (1) C. difficile colitis Current Visit: Yes Status: Acute Code(s): A04.72 - ENTEROCOLITIS D/T CLOSTRIDIUM DIFFICILE, NOT SPCF RECUR SNOMED Code(s): 332201440 (2) Dehydration Current Visit: Yes Status: Acute Code(s): E86.0 - DEHYDRATION SNOMED Code(s): 75676447 (3) Colitis Current Visit: Yes Status: Acute Code(s): K52.9 - NONINFECTIVE GASTROENTERITIS AND COLITIS, UNSPECIFIED SNOMED Code(s): 56414443 (4) Hypotension Current Visit: Yes Status: Acute Code(s): I95.9 - HYPOTENSION, UNSPECIFIED SNOMED Code(s): 39485861 (5) Essential (primary) hypertension Current Visit: Yes Status: Acute Code(s): I10 - ESSENTIAL (PRIMARY) HYPERTENSION SNOMED Code(s): 54277446 (6) Mixed hyperlipidemia Current Visit: Yes Status: Acute Code(s): E78.2 - MIXED HYPERLIPIDEMIA SNOMED Code(s): 666312318 Hospital course:This is a 69 y/o white femal well knowm to me from my practice. She has been complaining of Diarrhea that started 5 days a go and has steadily worsened leading to significatn fatigue and dehydration]b.She c/o of 5+ stools per day of watery diarrhea. She has been on multiple rounds of anitibiotics over the past 6 weeks as well for Dental Carries and UTI. She denies any CP, pressure, SOB, some nausea but no voimitng. 07/23/2019: Patient is feeling better. She remains on vancomycin 250 mg 4 times a day for C. difficile colitis. Stool sample was positive for C. difficile colitis. Stool cultures are pending. She is tolerating a clear liquid diet and denies any significant nausea or vomiting. She is requesting a full diet at this time. She reports only one to 2 stools in the past 12 hours. She denies any chest pains, pressures, shortness of breath. We discussed her methotrexate that she takes for psoriasis and arthritis. I also reviewed her med list and the significant amount of antibiotic she received regarding her root canal and my suspicion the clindamycin played a factor in this. Significant clinical improvement. Diarrhea now formed, no nausea and vomiting. BP meds on hold, reevaluate at follow-up visit with PCP. Patient is being discharged home in a stable condition with guarded prognosis. - Exam General: Alert and oriented 3, no acute distress. Cardiovascular: S1S2 is normal, There is a regular rate and rhythm. No murmur, rub or gallop is appreciated. Respiratory: Lungs are clear to auscultation bilaterally, respirations are non-labored, breath sounds are equal. Gastrointestinal: Soft, non-distended, non-tender abdomen without masses or organomegaly noted. There is no rebound or guarding present. Bowel sounds are unremarkable. Neurological: No neuro deficits. The impression and plan of care has been dictated as directed. : I performed a history and examination of this patient, discussed the same with the dictator. I agree with the dictator's note ,documented as a scribe. Any additional findings or plans will be noted. Patient Condition at Discharge: Stable Plan - Discharge Summary Discharge Rx Participant: No New Discharge Prescriptions: New Acetaminophen Tab [Tylenol] 650 mg PO Q6HR PRN tab PRN Reason: Fever And/ Or Pain Vancomycin Oral Solution 250 mg PO Q6HR 12 Days #60 ml Lactobacillus Acidophilus [Acidophilus] 1 each PO DAILY #1 tablet Continue Aspirin 81 mg PO DAILY Simvastatin [Zocor] 40 mg PO HS Methotrexate Sodium [Methotrexate] 15 mg PO MO Discontinued Benazepril/Hydrochlorothiazide [Lotensin Hct 10-12.5 mg Tablet] 1 tab PO QAM Discharge Medication List Aspirin 81 mg PO DAILY 10/02/14 [History] Methotrexate Sodium [Methotrexate] 15 mg PO MO 10/02/14 [History] Simvastatin [Zocor] 40 mg PO HS 10/02/14 [History] Acetaminophen Tab [Tylenol] 650 mg PO Q6HR PRN tab 07/24/19 [Rx] Lactobacillus Acidophilus [Acidophilus] 1 each PO DAILY #1 tablet 07/24/19 [Rx] Vancomycin Oral Solution 250 mg PO Q6HR 12 Days #60 ml 07/24/19 [Rx] Follow up Appointment(s)/Referral(s): Noam Gusman MD [Primary Care Provider] - 07/27/19 8:30 am Patient Instructions/Handouts: C Diff (Clostridium Difficile) Infection (DC) Activity/Diet/Wound Care/Special Instructions: Lotensin HCT on hold, reevaluate at follow-up visit with PCP this week. Lactobacillus/probiotics daily will also be discussed at follow-up visit. Discharge Disposition: HOME SELF-CARE
== END 2019-07-24 10:35 | disposition home or self-care (01) | DRG 373 ==
LOC: EC 12:28 → 3NMEDONC 17:03
PROVIDERS: ADMIT Family Medicine; ATTEND Family Medicine
DX: A04.72 Enterocolitis due to Clostridium difficile, not specified as recurrent (principal); E78.2 Mixed hyperlipidemia; E83.42 Hypomagnesemia; E86.0 Dehydration; E87.6 Hypokalemia; F17.210 Nicotine dependence, cigarettes, uncomplicated; I10 Essential (primary) hypertension; L40.9 Psoriasis, unspecified; M19.90 Unspecified osteoarthritis, unspecified site; Z79.82 Long term (current) use of aspirin; Z85.42 Personal history of malignant neoplasm of other parts of uterus; Z90.710 Acquired absence of both cervix and uterus; Z79.899 Other long term (current) drug therapy; I95.9 Hypotension, unspecified
CPT/HCPCS: 36415; 80048; 80053; 81001; 82150; 83605; 83690; 83735; 85025; 87045; 87046; 87324; 96360; 96361; 99285

== ENCOUNTER → 2019-08-03 | Outpatient (CLI) | payer MEDICARE ==
--- NOTE | 2019-08-03 14:39 | US ---
EXAMINATION TYPE: US kidneys/renal and bladder DATE OF EXAM: 08/03/2019 COMPARISON: Correlation CT 07/13/2019 CLINICAL HISTORY: 69-year-old female M79.662 Pain Lt Lower Leg, I80.02 Phlebitis and th. Hematuria TECHNIQUE: Multiple sonographic images of the kidneys and bladder are obtained. FINDINGS: EXAM MEASUREMENTS: Right Kidney: 11.0 x 4.3 x 5.2 cm Left Kidney: 9.9 x 5.0 x 5.2 cm No hydronephrosis on either side. Bladder: wnl Bilateral Jets seen: Yes IMPRESSION: No hydronephrosis. Both ureteral jets are visualized.
--- NOTE | 2019-08-09 12:12 | P.ARTDOP ---
Arterial Doppler LOWER EXTREMITY ARTERIAL DOPPLER: DATE OF SERVICE: 08/03/2019 Reason for study: Left leg pain. Doppler waveforms: Multiphasic bilaterally throughout. Pulse volume recording: []. Pressure gradients: None. Ankle-brachial indices: Greater than 1 bilaterally. Toe pressures: [] on the right, [] on the left Impression: Normal study.
== END | disposition home or self-care (01) ==
LOC: RADUSWWP 11:54
PROVIDERS: ATTEND Family Medicine
DX: I80.02 Phlebitis and thrombophlebitis of superficial vessels of left lower extremity (principal)
CPT/HCPCS: 76770; 93922

== ENCOUNTER → 2019-08-16 | Outpatient (CLI) | payer MEDICARE ==
[2019-08-16 10:26] LABS: Basophils # (A) 0.1 k/uL (0-0.2); Basophils % (A) 2 %; Eosinophils # (A) 0.2 k/uL (0-0.7); Eosinophils % (A) 5 %; HCT 39.9 % (34.0-46.0); HGB 12.7 gm/dL (11.4-16.0); Lymphocytes # (A) 0.6 k/uL (1.0-4.8); Lymphocytes % (A) 17 %; MCH 31.2 pg (25.0-35.0); MCHC 31.8 g/dL (31.0-37.0); MCV 98.2 fL (80.0-100.0); Mean Platelet Volume 7.8; Monocytes # (A) 0.2 k/uL (0-1.0); Monocytes % (A) 5 %; Neutrophils # (A) 2.6 k/uL (1.3-7.7); Neutrophils % (A) 70 %; Platelet Count 215 k/uL (150-450); RBC 4.06 m/uL (3.80-5.40); RDW 14.5 % (11.5-15.5); WBC 3.7 k/uL (3.8-10.6)
[2019-08-16 16:14] LABS: Albumin 3.8 g/dL (3.80-4.90); Albumin/Globulin Ratio 2.11 (1.60-3.17); BUN/Creat Ratio 16.67 Ratio (12.00-20.00); Chol/HDL Ratio 2.67; Globulin 1.8 g/dL (1.6-3.3); LDL Cholesterol,Calculated 79.6 mg/dL (0.0-131.0); Potassium 3.7 mmol/L (3.5-5.5); Total Bilirubin 0.5 mg/dL (0.2-1.2); Total Protein 5.6 g/dL (6.2-8.2); VLDL Calculation 20.4 mg/dL (5.00-40.00)
[2019-08-16 16:20] LABS: T4, Free (Free Thyroxine) 0.9 ng/dL (0.80-1.80)
== END | disposition home or self-care (01) ==
LOC: LABWHC1 09:25
PROVIDERS: ATTEND Dermatology Dermatopathology
DX: Z00.00 Encounter for general adult medical examination without abnormal findings (principal); L40.0 Psoriasis vulgaris; Z79.899 Other long term (current) drug therapy
CPT/HCPCS: 36415; 80053; 80061; 84439; 84443; 85025

== ENCOUNTER → 2019-12-12 | Outpatient (CLI) | payer MEDICARE ==
[2019-12-12 13:48] LABS: HCT 45.2 % (34.0-46.0); HGB 14.4 gm/dL (11.4-16.0); MCH 31.4 pg (25.0-35.0); MCHC 31.9 g/dL (31.0-37.0); MCV 98.2 fL (80.0-100.0); Mean Platelet Volume 9.5; Platelet Count 220 k/uL (150-450); WBC 9.1 k/uL (3.8-10.6)
[2019-12-12 19:42] LABS: ALT 65 U/L (8-44); AST 49 U/L (13-35)
== END | disposition home or self-care (01) ==
LOC: LABWHC1 12:23
PROVIDERS: ATTEND Dermatology Dermatopathology
DX: L40.0 Psoriasis vulgaris (principal); Z79.899 Other long term (current) drug therapy
CPT/HCPCS: 36415; 84450; 84460; 85027

== ENCOUNTER → 2020-07-04 | Outpatient (CLI) | payer MEDICARE ==
--- NOTE | 2020-07-05 11:23 | MM ---
Reason for exam: screening (asymptomatic). Last mammogram was performed 1 year and 2 months ago. History: Patient is postmenopausal and has history of endometrial cancer at age 28. Family history of breast cancer in maternal grandmother. Took estrogen for 4 years. Physical Findings: A clinical breast exam by your physician is recommended on an annual basis and results should be correlated with mammographic findings. MG 3D Screening Mammo W/Cad Bilateral CC and MLO view(s) were taken. Prior study comparison: April 20, 2019, bilateral MG 3d screening mammo w/cad. March 25, 2018, bilateral MG 3d screening mammo w/cad. The breast tissue is heterogeneously dense. This may lower the sensitivity of mammography. Stable benign calcifications. There is chronic nodularity bilaterally. No significant changes when compared with prior studies. ASSESSMENT: Benign, BI-RAD 2 RECOMMENDATION: Routine screening mammogram of both breasts in 1 year.
== END | disposition home or self-care (01) ==
LOC: RADMAMWWP 11:13
PROVIDERS: ATTEND Family Medicine
DX: Z12.31 Encounter for screening mammogram for malignant neoplasm of breast (principal); Z80.3 Family history of malignant neoplasm of breast
CPT/HCPCS: 77063; 77067

== ENCOUNTER → 2021-07-11 | Outpatient (CLI) | payer MEDICARE ==
--- NOTE | 2021-07-15 10:22 | MM ---
Reason for exam: screening (asymptomatic). Last mammogram was performed 1 year ago. History: Patient is postmenopausal and has history of endometrial cancer at age 28. Family history of breast cancer in maternal grandmother. Took estrogen for 4 years. Physical Findings: A clinical breast exam by your physician is recommended on an annual basis and results should be correlated with mammographic findings. MG 3D Screening Mammo W/Cad Bilateral CC and MLO view(s) were taken. Prior study comparison: July 04, 2020, bilateral MG 3d screening mammo w/cad. April 20, 2019, bilateral MG 3d screening mammo w/cad. March 25, 2018, bilateral MG 3d screening mammo w/cad. The breast tissue is heterogeneously dense. This may lower the sensitivity of mammography. No significant changes when compared with prior studies. ASSESSMENT: Benign, BI-RAD 2 RECOMMENDATION: Routine screening mammogram of both breasts in 1 year.
== END | disposition home or self-care (01) ==
LOC: RADMAMWWP 12:49
PROVIDERS: ATTEND Family Medicine
DX: Z12.31 Encounter for screening mammogram for malignant neoplasm of breast (principal); Z80.3 Family history of malignant neoplasm of breast; Z85.42 Personal history of malignant neoplasm of other parts of uterus
CPT/HCPCS: 77063; 77067

== ENCOUNTER → 2022-04-23 | Outpatient (CLI) | payer MEDICARE ==
--- NOTE | 2022-04-23 11:05 | US ---
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 Patient states at the end of the da y her right leg swells > left. No redness. No hx dvt. On aspirin. SIDE PERFORMED: Bilateral TECHNIQUE: The lower extremity deep venous system is examined utilizing real time linear array sonog laila with graded compression, doppler sonography and color-flow sonography. VESSELS IMAGED: Common Femoral Vein Deep Femoral Vein Greater Saphenous Vein * Femoral Vein Popliteal Vein Small Saphenous Vein * Proximal Calf Veins (* superficial vessels) Right Leg: Negative for DVT Left Leg: Negative for DVT Grayscale, color doppler, spectral doppler imaging performed of the deep veins of the lower extremiti es. There is normal flow, compressibility, vascular waveforms. IMPRESSION: No evidence for deep vein thrombosis of either lower extremity.
== END | disposition home or self-care (01) ==
LOC: RADUSWWP 09:33
PROVIDERS: ATTEND Family Medicine
DX: I83.813 Varicose veins of bilateral lower extremities with pain (principal); F17.200 Nicotine dependence, unspecified, uncomplicated
CPT/HCPCS: 93970

== ENCOUNTER → 2023-08-13 | Outpatient (CLI) | payer MEDICARE ==
--- NOTE | 2023-08-13 11:37 | MM ---
Reason for Exam: Screening (asymptomatic). Last screening mammogram was performed 12 month(s) ago. Patient History: Menarche at age 11. First Full-Term at age 20. Hysterectomy at age 28. Postmenopausal. Endometrial cancer, age 28. Estrogen for 4 years until age 57. Maternal grandmother had breast cancer. Risk Values: Flores 5 year model risk: 1.6%. NCI Lifetime model risk: 3.7%. Prior Study Comparison: 07/04/2020 Bilateral Screening Mammogram, [facility]. 07/11/2021 Bilateral Screening Mammogram, [facility]. 08/05/2022 Bilateral MG 3D screening mammo w/cad, [facility]. Tissue Density: The breast tissue is heterogeneously dense. This may lower the sensitivity of mammography. Findings: Analyzed By CAD. There is no suspicious group of microcalcifications or new suspicious mass in either breast. Benign calcifications within both breasts. Overall Assessment: Benign, BI-RAD 2 Management: Screening Mammogram of both breasts in 1 year. A clinical breast exam by your physician is recommended on an annual basis and results should be correlated with mammographic findings. Note on Flores scores and lifetime risk: 1. A Flores score greater than 3% is considered moderate risk. If this is the case, consider specialist referral to assess eligibility for a risk reducing agent. If overall lifetime risk for the development of breast cancer is 20% or higher, the patient may qualify for future screening with alternating mammogram and breast MRI. Electronically signed and approved by: Kermit Hoyt D.O.
== END | disposition home or self-care (01) ==
LOC: RADMAMWWP 11:08
PROVIDERS: ATTEND Family Medicine
DX: Z12.31 Encounter for screening mammogram for malignant neoplasm of breast (principal); Z78.0 Asymptomatic menopausal state; Z80.3 Family history of malignant neoplasm of breast
CPT/HCPCS: 77063; 77067

== ENCOUNTER → 2023-09-21 | Outpatient (CLI) | payer MEDICARE ==
--- NOTE | 2023-09-21 15:29 | US ---
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
--- NOTE | 2023-09-21 18:57 | US ---
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 VESSELS IMAGED: Common Femoral Vein Deep Femoral Vein Greater Saphenous Vein * Femoral Vein Popliteal Vein Small Saphenous Vein * Proximal Calf Veins Posterior tibial veins (* superficial vessels) Right Leg: Negative for DVT Left Leg: Negative for DVT IMPRESSION: No evidence for DVT within the bilateral lower extremities.
== END | disposition home or self-care (01) ==
LOC: RADUSWWP 12:17
PROVIDERS: ATTEND Family Medicine
DX: I83.813 Varicose veins of bilateral lower extremities with pain (principal); I10 Essential (primary) hypertension; E78.5 Hyperlipidemia, unspecified; E11.51 Type 2 diabetes mellitus with diabetic peripheral angiopathy without gangrene
CPT/HCPCS: 93922; 93970

== ENCOUNTER → 2024-08-15 | Outpatient (CLI) | payer MEDICARE ==
--- NOTE | 2024-08-19 15:37 | MM ---
Reason for Exam: Screening (asymptomatic). Last screening mammogram was performed 12 month(s) ago. Patient History: Menarche at age 11. First Full-Term at age 20. Hysterectomy at age 28. Postmenopausal. Endometrial cancer, age 28. Estrogen for 4 years until age 57. Maternal grandmother had breast cancer. Risk Values: Flores 5 year model risk: 1.6%. NCI Lifetime model risk: 3.4%. Prior Study Comparison: 07/11/2021 Bilateral Screening Mammogram, [facility]. 08/05/2022 Bilateral MG 3D screening mammo w/cad, [facility]. 08/13/2023 Bilateral MG 3D screening mammo w/cad, [facility]. Tissue Density: The breasts are heterogeneously dense, which may obscure small masses. Findings: Analyzed By CAD. The pattern is symmetrical. Benign coarse calcifications within the right breast. There is a small benign-appearing round sulcations bilaterally No suspicious groups of microcalcifications, spiculated or lobular masses, architectural distortion or other secondary signs of malignancy are mammographically apparent. Overall Assessment: Benign, BI-RAD 2 Management: Screening Mammogram of both breasts in 1 year. A negative mammogram report should not preclude additional follow up of suspicious palpable abnormalities. Patient should continue monthly self breast exam. A clinical breast exam by your physician is recommended on an annual basis and results should be correlated with mammographic findings. Note on Flores scores and lifetime risk: 1. A Flores score greater than 3% is considered moderate risk. If this is the case, consider specialist referral to assess eligibility for a risk reducing agent. 2. If overall lifetime risk for the development of breast cancer is 20% or higher, the patient may qualify for future screening with alternating mammogram and breast MRI. [facility], , 08/19/2024 3:34 PM. Electronically signed and approved by: Berhane Barton D.O. Radiologis
== END | disposition home or self-care (01) ==
LOC: RADMAMWWP 13:44
PROVIDERS: ATTEND Family Medicine
DX: Z12.31 Encounter for screening mammogram for malignant neoplasm of breast (principal); R92.333 Mammographic heterogeneous density, bilateral breasts; Z78.0 Asymptomatic menopausal state; Z80.3 Family history of malignant neoplasm of breast
CPT/HCPCS: 77063; 77067